=== PATIENT | female | born 1990 | race Caucasian/White ===

== ENCOUNTER 2016-04-30 15:32 | Emergency (ER) | payer BC ==
[~2016-04-30] VITALS: Ht 170.2 cm; Wt 136.1 kg
[~2016-04-30 15:32] MED LIST: CIPR500T4 PO; HYDR-3816 PO; LISI-556 PO; LOVA10TA PO; MELO15TA14 PO; METF1000 PO; METFORMIN; METR500T21 PO; SULF-222 PO; TRAM-42 PO
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
[2016-04-30] MEDS ORDERED: LIDOCAINE 2% 20 ML (XYLOCAINE) VIAL INJ ONE (16:30)
[2016-04-30] MEDS ORDERED: TETANUS,DIPTH,PERTUSS P/F (BOOSTRIX) 0.5 ML VIAL IM ONE (16:45)
[2016-04-30 16:48] VITALS: BP 154/74
== END 2016-04-30 16:48 | disposition home or self-care (01) ==
LOC: EDUNIT# 15:32 → ER 15:34
DX: S61.011A Laceration without foreign body of right thumb without damage to nail, initial encounter (principal); Z23 Encounter for immunization; I10 Essential (primary) hypertension; E11.9 Type 2 diabetes mellitus without complications; F17.210 Nicotine dependence, cigarettes, uncomplicated; Z79.84 Long term (current) use of oral hypoglycemic drugs; Z79.899 Other long term (current) drug therapy; W26.0XXA Contact with knife, initial encounter; Y92.511 Restaurant or cafe as the place of occurrence of the external cause; Y93.G1 Activity, food preparation and clean up; Y99.0 Civilian activity done for income or pay
CPT/HCPCS: 90471; 90715

== ENCOUNTER 2016-10-01 18:58 | Emergency (ER) | payer BC ==
[~2016-10-01] VITALS: Ht 170.2 cm; Wt 141.5 kg
[2016-10-01] MEDS ORDERED: DIET25TA57 PO (19:33)
[2016-10-01] MEDS ORDERED: NALT1TAB PO (19:33)
[2016-10-01 20:25] LABS: BASOPHILS % (AUTO) 0 % (0-10); EOSINOPHILS # (AUTO) 0.2 10^3/uL (0.0-0.3); EOSINOPHILS % (AUTO) 1 % (0-10); LYMPHOCYTES # (AUTO) 2.8 X 10^3 (1.0-4.0); LYMPHOCYTES % (AUTO) 20 % (12-44); MEAN CORPUSCULAR HEMOGLOBIN 29 PG (25-34); MEAN CORPUSCULAR HGB CONC 34 G/DL (32-36); MEAN CORPUSCULAR VOLUME 84 FL (80-99); MEAN PLATELET VOLUME 10.5 FL (7.4-10.4); MONOCYTES # (AUTO) 0.9 X 10^3 (0.0-1.0); MONOCYTES % (AUTO) 6 % (0-12); NEUTROPHILS # (AUTO) 9.9 X 10^3 (1.8-7.8); NEUTROPHILS % (AUTO) 72 % (42-75); PLATELET COUNT 290 10^3/uL (130-400); RED BLOOD COUNT 5.06 10^6/uL (4.35-5.85); RED CELL DISTRIBUTION WIDTH 13.4 % (10.0-14.5); WHITE BLOOD COUNT 13.8 10^3/uL (4.3-11.0)
[2016-10-01 20:37] LABS: ALANINE AMINOTRANSFERASE 54 U/L (0-55); ALBUMIN 3.9 GM/DL (3.2-4.5); ANION GAP 10 MMOL/L (5-14); ASPARTATE AMINO TRANSFERASE 31 U/L (5-34); BILIRUBIN,TOTAL 0.3 MG/DL (0.1-1.0); BLOOD UREA NITROGEN 11 MG/DL (7-18); BUN/CREATININE RATIO 14; CALCIUM 9.1 MG/DL (8.5-10.1); CARBON DIOXIDE 21 MMOL/L (21-32); CHLORIDE 109 MMOL/L (98-107); CREATININE SERUM 0.79 MG/DL (0.60-1.30); GFR ESTIMATED > 60; GLUCOSE 136 MG/DL (70-105); POTASSIUM 3.9 MMOL/L (3.6-5.0); SODIUM 140 MMOL/L (135-145); TOTAL PROTEIN 6.9 GM/DL (6.4-8.2)
[2016-10-01 20:59] LABS: LIPASE 12 U/L (8-78)
[2016-10-01 21:01] LABS: BILIRUBIN,URINE NEGATIVE (NEGATIVE); KETONES,URINE NEGATIVE (NEGATIVE); LEUKOCYTE ESTERASE ,URINE 2+ (NEGATIVE); NITRITE,URINE NEGATIVE (NEGATIVE); PH,URINE 6.5 (5-9); PROTEIN,URINE 2+ (NEGATIVE); UROBILINOGEN,URINE NORMAL (NORMAL)
[2016-10-01] MEDS ORDERED: NS IV 1000 ML 1,000 ML IV ONE (21:04)
[2016-10-01] MEDS ORDERED: morphine INJ 10 MG/ML 1ML (SYR OR VIAL) IVP STA (21:04)
[2016-10-01 21:14] LABS: WBC,URINE 25-50 /HPF
[2016-10-01] MEDS ORDERED: ONDANSETRON 4 MG/2 ML (SDV) Z0FRAN IVP ONE (21:15)
--- NOTE | 2016-10-01 21:27 | ED GU-Female ---
General Chief Complaint: Abdominal/GI Problems Stated Complaint: R SIDE ABD PAIN Nursing Triage Note: PT HERE WITH C/O RLQ ABDOMINAL PAIN AND NAUSEA. Nursing Sepsis Screen: No Definite Risk Source: patient, family (mother, brother, and stepdaughter) Exam Limitations: no limitations History of Present Illness Time seen by provider: 20:45 Initial Comments 26-year-old female patient presents to the emergency department with 2 day onset of right lower quadrant pain and nausea. Denies vomiting or diarrhea. Timing/Duration: getting worse, other (today onset) Location: RLQ Radiation: none Activities at Onset: none Prior Genitourinary Problems: none Modifying Factors: Worsens With Movement, Worsens With Palpation Allergies and Home Medications Allergies Coded Allergies: Penicillins (Verified Allergy, Unknown, 04/21/15) Home Medications Diethylpropion HCl 25 Mg Tablet, 25 MG PO, (Reported) Lisinopril 5 Mg Tablet, 5 MG PO HS, #30 (Reported) Lovastatin 10 Mg Tablet, 10 MG PO HS, #30 (Reported) Metformin HCl 1,000 Mg Tablet, 2,000 MG PO HS, (Reported) Naltrexone HCl/Bupropion HCl 1 Each Tablet.er, 1 EACH PO, (Reported) Nitrofurantoin Monohyd/M-Cryst 100 Mg Capsule, 1 TAB PO BID, #14 Ref 0 Prescribed by: PHILIPPE MORELOS on 10/01/162208 Ondansetron 8 Mg Tab.rapdis, 8 MG PO Q6H PRN for NAUSEA/VOMITING-1ST LINE, #10 Ref 0 Prescribed by: PHILIPPE MORELOS on 10/01/162208 Phenazopyridine HCl 200 Mg Tablet, 1 TAB PO Q8H PRN for pain, #14 Ref 0 Prescribed by: PHILIPPE MORELOS on 10/01/162208 Constitutional: chills, No fever, malaise EENTM: no symptoms reported Respiratory: no symptoms reported Cardiovascular: no symptoms reported Gastrointestinal: see HPI, abdominal pain, No constipation, No diarrhea, loss of appetite, nausea, No vomiting Genitourinary: denies burning, denies dysuria, denies frequency, denies flank pain, denies hematuria, denies pain Musculoskeletal: no symptoms reported Skin: no symptoms reported Psychiatric/Neurological: No Symptoms Reported All Other Systemes Reviewed Negative Unless Noted: Yes (Negative excepted noted.) Past Npzmjgl-Jquiif-Cugsoj Hx Patient Social History Alcohol Use: Occasionally Uses Recreational Drug Use: No Smoking Status: Current Everyday Smoker Type Used: Cigarettes 2nd Hand Smoke Exposure: No Recent Foreign Travel: No Contact w/Someone Who Travel: No Recent Infectious Disease Expo: No Recent Hopitalizations: No Immunizations Up To Date Tetanus Booster (TDap): More than 5yrs Seasonal Allergies Seasonal Allergies: No Surgeries HX Surgeries: Yes (TEETH) Respiratory Hx Respiratory Disorders: No Cardiovascular Hx Cardiac Disorders: Yes Cardiac Disorders: High Cholesterol, Hypertension Neurological Hx Neurological Disorders: No Reproductive System : No Hx Reproductive Disorders: No Genitourinary Hx Genitourinary Disorders: No Gastrointestinal Hx Gastrointestinal Disorders: No Musculoskeletal Hx Musculoskeletal Disorders: No Endocrine Hx Endocrine Disorders: Yes Endocrine Disorders: Diabetes, Insulin dep HEENT HX ENT Disorders: No Cancer Hx Cancer: No Psychosocial Hx Psychiatric Problems: No Integumentary HX Skin/Integumentary Disorder: No Blood Transfusions Hx Blood Disorders: No Reviewed Nursing Assessment Reviewed/Agree w Nursing PMH: Yes Family Medical History Significant Family History: No Pertinent Family Hx Physical Exam Vital Signs Capillary Refill : Less Than 3 Seconds General Appearance: WD/WN, no apparent distress HEENT: PERRL/EOMI, pharynx normal Neck: supple, normal inspection Cardiovascular: normal peripheral pulses, regular rate, rhythm, no murmur Respiratory: lungs clear, normal breath sounds, no respiratory distress, no accessory muscle use Gastrointestinal: normal bowel sounds, soft, no organomegaly, No distended, guarding (RLQ), rebound (RLQ), tenderness (RLQ and suprapubic), other (positive Rovsing sign) Back: normal inspection, no CVA tenderness Extremities: no pedal edema, normal capillary refill Neurologic/Psychiatric: alert, normal mood/affect, oriented x 3 Skin: normal color, warm/dry Progress/Results/Core Measures Results/Orders Lab Results My Orders Medications Given in ED Vital Signs/I&O Blood Pressure Mean: 112 Point of Care Testing Urine -Bedside: Negative Diagnostic Imaging Diagonstic Imaging: CT Plain Films/CT/US/NM/MRI: abdomen, pelvis Comments FINDINGS: Included views of the lung bases are clear. CT abdomen: Normal appendix is identified. Small bowel loops are nondistended. Liver is diffusely hypodense. Otherwise, the kidneys, adrenal glands, spleen, pancreas, and liver have a normal CT appearance. There is no loculated fluid collection, free fluid, nor free air within the abdomen. No abnormal mesenteric or retroperitoneal adenopathy is seen. Bony structures show no acute abnormalities. CT pelvis: Urinary bladder wall appears thickened, but urinary bladder is only minimally distended. There is no loculated fluid collection, free fluid, nor free air within the pelvis. No abnormal lymph nodes are seen. Bony structures show no acute abnormalities. IMPRESSION: 1. Normal appendix. 2. Thickened appearance to the wall of the urinary bladder. This, however, may be artifactual and related to incomplete distention. Similar appearance, however, may also be seen with underlying cystitis. Correlation with urinary analysis may be of benefit. 3. Hepatic steatosis. Dictated by: Dictated on workstation # [id number] Reviewed: Reviewed by Me (radiology report reviewed by me) Departure Communication Progress Notes [id number] joiner including history, vital signs, laboratory findings, and diagnostic study findings. Recommendations by Dr. Joiner are for discharge to home with treatment of the urinary tract infection and follow- up in his office tomorrow for recheck. Upper dennis findings, diagnostic study findings, and recommendations by Dr. Joiner were discussed with the patient. Patient voices understanding and agrees with the treatment plan. Impression Impression: Primary Impression: Right lower quadrant abdominal pain Additional Impression: Urinary tract infection Disposition: 01 HOME, SELF-CARE Condition: Improved Departure-Patient Inst. Decision time for Depature: 22:08 Referrals: [facility] (PCP/Family) Primary Care Physician Patient Instructions: Acute Abdomen (Belly Pain), Adult (DC), Appendicitis, Adult (DC), Urinary Tract Infection, Adult (DC) Add. Discharge Instructions: All discharge instructions reviewed with patient and/or family. Voiced understanding. Medications as instructed. Ibuprofen 800 mg by mouth every 8 hours as needed for pain. Drink plenty of fluids. Expect a call from Dr. Joiner office tomorrow morning to schedule an outpatient appointment to see him in his office for recheck. Dr. Joiner will see you tomorrow. Avoid taking pain medication for approximately 6 hours prior to being seen by Dr. Joiner. Return to emergency department for worsened pain, fever, vomiting, decreased urination, inability to urinate, abdominal swelling, or any other concerns. Scripts Phenazopyridine HCl (Pyridium) 200 Mg Tablet 1 TAB PO Q8H Y for pain, #14 TAB 0 Refills Prov: PHILIPPE MORELOS 10/01/16 Ondansetron (Ondansetron Odt) 8 Mg Tab.rapdis 8 MG PO Q6H Y for NAUSEA/VOMITING-1ST LINE, #10 TAB 0 Refills Prov: PHILIPPE MORELOS 10/01/16 Nitrofurantoin Monohyd/M-Cryst (Macrobid 100 mg Capsule) 100 Mg Capsule 1 TAB PO BID, #14 CAP 0 Refills Prov: PHILIPPE MORELOS 10/01/16 PHILIPPE MORELOS Oct 01, 2016 9:27 pm
[2016-10-01] MEDS ORDERED: NS 100 ML (IVPB) BAG IV ONE (21:30)
[2016-10-01] MEDS ORDERED: IOHEXOL 350 MG/ML 100 ML (OMNIPAQUE 350) VIAL IV ONE (21:30)
--- NOTE | 2016-10-01 21:43 | Diagnostic Imaging Report ---
PROCEDURE: CT abdomen and pelvis with contrast, rule out appendicitis. TECHNIQUE: Multiple contiguous axial images were obtained through the abdomen and pelvis after the administration of intravenous contrast. INDICATION: Right lower quadrant abdominal pain. COMPARISON: None FINDINGS: Included views of the lung bases are clear. CT abdomen: Normal appendix is identified. Small bowel loops are nondistended. Liver is diffusely hypodense. Otherwise, the kidneys, adrenal glands, spleen, pancreas, and liver have a normal CT appearance. There is no loculated fluid collection, free fluid, nor free air within the abdomen. No abnormal mesenteric or retroperitoneal adenopathy is seen. Bony structures show no acute abnormalities. CT pelvis: Urinary bladder wall appears thickened, but urinary bladder is only minimally distended. There is no loculated fluid collection, free fluid, nor free air within the pelvis. No abnormal lymph nodes are seen. Bony structures show no acute abnormalities. IMPRESSION: 1. Normal appendix. 2. Thickened appearance to the wall of the urinary bladder. This, however, may be artifactual and related to incomplete distention. Similar appearance, however, may also be seen with underlying cystitis. Correlation with urinary analysis may be of benefit. 3. Hepatic steatosis. Dictated by: Dictated on workstation # [id number]
[2016-10-01] MEDS ORDERED: PHEN-640 PO (22:09)
[2016-10-01] MEDS ORDERED: NITR-65 PO (22:09)
[2016-10-01] MEDS ORDERED: ONDA8TAB13 PO (22:09)
[2016-10-01] MEDS ORDERED: RX-NITROFURANTOIN 100 MG (MACROBID) CAP PPK#2 PO STA (22:11)
[2016-10-01] MEDS ORDERED: RX-HYDROCODONE/APAP 5/325 MG #4 TAB PK PO PRN (22:15)
[2016-10-01 22:29] VITALS: BP 150/85
== END 2016-10-01 22:29 | disposition home or self-care (01) ==
LOC: EDUNIT# 18:58 → ER 18:59
DX: N39.0 Urinary tract infection, site not specified (principal); E78.00 Pure hypercholesterolemia, unspecified; I10 Essential (primary) hypertension; E11.9 Type 2 diabetes mellitus without complications; F17.210 Nicotine dependence, cigarettes, uncomplicated; Z79.84 Long term (current) use of oral hypoglycemic drugs
CPT/HCPCS: 36415; 74177; 80053; 81000; 83690; 84703; 85025; 87088; 96361; 96374; 96375

== ENCOUNTER → 2016-10-04 | Outpatient (CLI) | payer BC ==
[~2016-10-04] MED LIST changes: +DIET25TA57 PO; +NALT1TAB PO; +NITR-65 PO; +ONDA8TAB13 PO; +PHEN-640 PO
--- NOTE | 2016-10-04 09:40 | Diagnostic Imaging Report ---
PROCEDURE: US Gallbladder. TECHNIQUE: Multiple real-time grayscale images were obtained over the right upper quadrant in various projections. INDICATION: Abdominal pain COMPARISON: None FINDINGS: There is diffuse hepatic steatosis. No focal hepatic mass is seen. Common bile duct is not well demonstrated. No gross biliary dilatation is seen. The gallbladder appears unremarkable. The pancreas is not well visualized. The right kidney measures 12.3 cm in length and appears normal. There is no sonographic Garg sign or ascites. IMPRESSION: 1. Diffuse hepatic steatosis 2. No additional abnormality is seen. Pancreas and common bile duct are not well visualized. Dictated by: Dictated on workstation # [id number]
== END ==
LOC: RAD 08:44
PROVIDERS: ATTEND Surgery
DX: K76.0 Fatty (change of) liver, not elsewhere classified (principal); R10.9 Unspecified abdominal pain
CPT/HCPCS: 76705

== ENCOUNTER 2017-12-05 10:46 | Emergency (ER) | payer OTHER, BC ==
[~2017-12-05] VITALS: Ht 170.2 cm; Wt 127.0 kg
[~2017-12-05 10:46] MED LIST changes: +HYDR-34 PO; -HYDR-3816 PO; +METF-399 PO; -METF1000 PO
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
[2017-12-05] MEDS ORDERED: METH-313 PO (11:08)
[2017-12-05] MEDS ORDERED: KETOROLAC 60 MG/2 ML VIAL IM ONE (11:15)
[2017-12-05] MEDS ORDERED: ORPHENADRINE 60 MG/2 ML (NORFLEX) AMP IM ONE (11:15)
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
[2017-12-05 12:01] VITALS: BP 133/76
== END 2017-12-05 12:01 | disposition home or self-care (01) ==
LOC: ER 10:46 → EDUNIT# 10:46 → ER 12:01
DX: S06.0X0A Concussion without loss of consciousness, initial encounter (principal); S16.1XXA Strain of muscle, fascia and tendon at neck level, initial encounter; E78.00 Pure hypercholesterolemia, unspecified; I10 Essential (primary) hypertension; E11.9 Type 2 diabetes mellitus without complications; Z87.448 Personal history of other diseases of urinary system; Z87.19 Personal history of other diseases of the digestive system; Z87.440 Personal history of urinary (tract) infections; Z88.0 Allergy status to penicillin; Z79.84 Long term (current) use of oral hypoglycemic drugs; V49.40XA Driver injured in collision with unspecified motor vehicles in traffic accident, initial encounter; Y92.524 Gas station as the place of occurrence of the external cause
CPT/HCPCS: 70450; 72125; 84703; 96372